=== PATIENT | male | born 1965 | race Caucasian/White ===

== ENCOUNTER 2017-03-18 13:32 | Emergency (ER) | payer BC ==
[~2017-03-18] VITALS: Ht 182.9 cm; Wt 105.7 kg
[2017-03-18 13:58] VITALS: TEMP 36.6; Ht 182.9 cm; Wt 105.7 kg
--- NOTE | 2017-03-18 14:44 | EMERGENCY ROOM VISIT NOTE ---
History Report prepared by Nomi: Dodie Garcia Under the Supervision of: Dr. Moose Cordoba D.O. First contact with patient: 14:22 Chief Complaint: ABDOMINAL PAIN Stated Complaint: LOWER ABDOMINAL PAIN Nursing Triage Summary: started with lower left abdominal pain about 30-45 mins ago. nausea and vomiting. denies trouble urinating. pain has subsided now. went to urgent care and was sent here History of Present Illness The patient is a 51 year old male who presents to the Emergency Room with complaints of left flank pain. The patient noticed an acute onset of left upper quadrant and left-sided back pain which began earlier today while he was hunting. The patient states the pain has been intermittent and very severe and stabbing at its worst. The patient was seen at an urgent care center in [place] and was told to come to the emergency department for appendicitis. The patient states he had one episode of emesis but does not feel nauseous at this time. He denies having any severe back pain decreased range of motion or injury. He denies noticing any blood in the urine. He's had no fevers. The patient has not had similar symptoms in the past. Source of History: patient Onset: earlier today Position: other (left flank) Symptom Intensity: severe (very) Quality: stabbing Timing: intermittent Associated Symptoms: + vomiting, No fevers, No nausea, No urinary symptoms Review of Systems See HPI for pertinent positives & negatives. A total of 10 systems reviewed and were otherwise negative. Past Medical & Surgical Medical Problems: (1) No Known Active Medical Problems Family History No pertinent family history stated. Social History Smoking Status: Never Smoker Smokeless Tobacco Use: No Alcohol Use: occasionally Drug Use: none Current/Historical Medications No Active Prescriptions or Reported Meds Allergies Coded Allergies: No Known Allergies (Unverified , 03/18/17) Physical Exam Vital Signs Date Time Temp Pulse Resp B/P (MAP) Pulse Ox O2 Delivery O2 Flow Rate FiO2 03/18/17 16:28 71 18 147/92 98 03/18/17 13:58 36.6 78 18 152/91 99 Physical Exam GENERAL: Patient is awake alert in no acute distress patient is resting comfortably and showing no signs of anxiety EYES: The conjunctivae are clear. The pupils are round and reactive. EARS, NOSE, MOUTH AND THROAT: The nose is without any evidence of any deformity. Mucous membranes are moist tongue is midline NECK: The neck is nontender and supple. RESPIRATORY: Normal respiratory effort is noted there is no evidence of wheezing rhonchi or rales CARDIOVASCULAR: Regular rate and rhythm noted there no murmurs rubs or gallops normal S1 normal S2 GASTROINTESTINAL: The abdomen is soft. Bowel sounds are present in all quadrants. Abdomen is nontender BACK: No midline tenderness or or step-off noted range of motion in flexion extension as well as rotation no signs of muscle spasm noted MUSCULOSKELETAL/EXTREMITIES: There is no evidence of gross deformity full range of motion is noted in the hips and shoulders SKIN: There is no obvious evidence of any rash. There are no petechiae, pallor or cyanosis noted. NEUROLOGIC: Patient is awake alert and oriented x3. Medical Decision & Procedures ER Provider Diagnostic Interpretation: Radiology results as stated below per my review and radiologist interpretation: ABD/PELVIS NO IV OR ORAL CONT CT DOSE: 811.19 mGy.cm HISTORY: Flank pain left flANK PAIN TECHNIQUE: Multiaxial CT images of the abdomen and pelvis were performed without contrast. A dose lowering technique was utilized adhering to the principles of ALARA. COMPARISON STUDY: None. FINDINGS: Lung bases are clear. Liver spleen and pancreas are unremarkable. Kidneys negative for hydronephrosis or calcification. There is no evidence for distention of the ureters. Mild chronic ascending and sigmoid diverticulosis. Scattered diverticuli throughout the remainder the colon. No evidence for acute diverticulitis. No evidence for abscess collection or obstruction. Bladder is midline. There is no significant abdominal pelvic or inguinal adenopathy. IMPRESSION: 1. Mild chronic descending and sigmoid colonic diverticulosis. 2. No evidence for acute diverticulitis. 3. Otherwise negative study. The above report was generated using voice recognition software. It may contain grammatical, syntax or spelling errors. Electronically signed by: Prosper Jacobo M.D. 03/18/2017 3:19 PM Dictated Date/Time: 03/18/2017 3:15 PM Laboratory Results 03/18/17 14:30 Red Blood Count 4.94, Mean Corpuscular Volume 89.3, Mean Corpuscular Hemoglobin 31.2, Mean Corpuscular Hemoglobin Concent 34.9, Mean Platelet Volume 9.8, Neutrophils (%) (Auto) 77.4, Lymphocytes (%) (Auto) 13.5, Monocytes (%) (Auto) 7.7, Eosinophils (%) (Auto) 1.0, Basophils (%) (Auto) 0.2, Neutrophils # (Auto) 9.60, Lymphocytes # (Auto) 1.67, Monocytes # (Auto) 0.96, Eosinophils # (Auto) 0.12, Basophils # (Auto) 0.02 03/18/17 14:30 Test 03/18/17 14:30 White Blood Count 12.40 K/uL (4.8-10.8) Red Blood Count 4.94 M/uL (4.7-6.1) Hemoglobin 15.4 g/dL (14.0-18.0) Hematocrit 44.1 % (42-52) Mean Corpuscular Volume 89.3 fL (80-100) Mean Corpuscular Hemoglobin 31.2 pg (25-34) Mean Corpuscular Hemoglobin Concent 34.9 g/dl (32-36) Platelet Count 188 K/uL (130-400) Mean Platelet Volume 9.8 fL (7.4-10.4) Neutrophils (%) (Auto) 77.4 % Lymphocytes (%) (Auto) 13.5 % Monocytes (%) (Auto) 7.7 % Eosinophils (%) (Auto) 1.0 % Basophils (%) (Auto) 0.2 % Neutrophils # (Auto) 9.60 K/uL (1.4-6.5) Lymphocytes # (Auto) 1.67 K/uL (1.2-3.4) Monocytes # (Auto) 0.96 K/uL (0.11-0.59) Eosinophils # (Auto) 0.12 K/uL (0-0.5) Basophils # (Auto) 0.02 K/uL (0-0.2) RDW Standard Deviation 43.7 fL (36.4-46.3) RDW Coefficient of Variation 13.3 % (11.5-14.5) Immature Granulocyte % (Auto) 0.2 % Immature Granulocyte # (Auto) 0.03 K/uL (0.00-0.02) Urine Color YELLOW Urine Appearance CLEAR (CLEAR) Urine pH 7.0 (4.5-7.5) Urine Specific [place] 1.023 (1.000-1.030) Urine Protein NEG (NEG) Urine Glucose (UA) NEG (NEG) Urine Ketones NEG (NEG) Urine Occult Blood NEG (NEG) Urine Nitrite NEG (NEG) Urine Bilirubin NEG (NEG) Urine Urobilinogen NEG (NEG) Urine Leukocyte Esterase NEG (NEG) Anion Gap 8.0 mmol/L (3-11) Est Creatinine Clear Calc Drug Dose 88.6 ml/min Estimated GFR () 77.5 Estimated GFR (Non- 66.9 BUN/Creatinine Ratio 15.8 (10-20) Calcium Level 9.4 mg/dl (8.5-10.1) Total Bilirubin 0.6 mg/dl (0.2-1) Direct Bilirubin 0.1 mg/dl (0-0.2) Aspartate Amino Transf (AST/SGOT) 26 U/L (15-37) Alanine Aminotransferase (ALT/SGPT) 38 U/L (12-78) Alkaline Phosphatase 80 U/L (45-117) Total Protein 7.6 gm/dl (6.4-8.2) Albumin 4.1 gm/dl (3.4-5.0) Lipase 157 U/L (73-393) Laboratory results per my review. ED Course 1424: The patient was evaluated in room C9. A complete history and physical examination were performed. 1607: Upon reevaluation, the patient is resting comfortably. I discussed the results and treatment plan with him. He verbalized agreement of the treatment plan. He was discharged home. Medical Decision Prior records/ancillary studies reviewed. Triage Nursing notes reviewed. Differential diagnosis: Etiologies such as appendicitis, diverticulitis, PUD, biliary pathology, UTI, pancreatitis, obstruction, mesenteric ischemia, aortic pathology, infections, inflammatory bowel disease, renal colic, as well as others were entertained. The patient is a 51-year-old male who presented to the emergency department for an evaluation of left-sided abdominal pain. The patient states the pain was very severe earlier sharp. He was very uncomfortable and had to walk around because the pain was so severe. The patient was seen at an urgent care center and sent to the emergency department for possible appendicitis. The patient's history and physical exam appear to be more consistent with renal colic. I discussed the patient's laboratory and radiographic studies with him. At this time no definite abnormality was noted on CT the abdomen and pelvis. The patient continued to be pain-free in the emergency department. He was encouraged to rest and avoid any strenuous activity. He was also encouraged to continue all medications as prescribed and return to the emergency department immediately if symptoms change worsen or the need arises. Medication Reconcilliation Current Medication List: was personally reviewed by me Blood Pressure Screening Patient's blood pressure: Elevated blood pressure Blood pressure disposition: Elevated BP felt to be situational Impression Primary Impression: Left sided abdominal pain Scribe Attestation The scribe's documentation has been prepared under my direction and personally reviewed by me in its entirety. I confirm that the note above accurately reflects all work, treatment, procedures, and medical decision making performed by me. Departure Information Dispostion Home / Self-Care Prescriptions No Active Prescriptions or Reported Meds Referrals No Doctor, Assigned (PCP) Forms Call Back Authorization, HOME CARE DOCUMENTATION FORM, IMPORTANT VISIT INFORMATION Patient Instructions ED Abdominal Pain Unkn Cause Male, My [facility] Additional Instructions Follow-up with your family doctor soon as possible. Rest and avoid any strenuous activity. Drink plenty clear liquids. Continue using Motrin and Tylenol for pain. Return to the emergency department immediately if symptoms change worsen or the need arises.
[2017-03-18 14:51] LABS: URINE APPEARANCE CLEAR (CLEAR); URINE BILIRUBIN NEG (NEG); URINE COLOR YELLOW; URINE NITRITE NEG (NEG); URINE SPECIFIC GRAVITY 1.023 (1.000-1.030); UROBILINOGEN NEG (NEG)
[2017-03-18 14:52] LABS: REVIEW REQ? NO
[2017-03-18 14:53] LABS: MANUAL MICROSCOPIC REQUIRED? NO
[2017-03-18 15:01] LABS: BASO % 0.2 %; BASO ABS # 0.02 K/uL (0-0.2); COMPLETE YES; HEMATOCRIT 44.1 % (42-52); IG% 0.2 %; LYMPH % 13.5 %; LYMPH ABS # 1.67 K/uL (1.2-3.4); MEAN CELL VOLUME 89.3 fL (80-100); MEAN CORPUSCULAR HEMOGLOBIN 31.2 pg (25-34); MEAN CORPUSCULAR HGB CONC 34.9 g/dl (32-36); MEAN PLATELET VOLUME 9.8 fL (7.4-10.4); MONO % 7.7 %; NEUT % 77.4 %; PLATELET COUNT 188 K/uL (130-400); RED BLOOD COUNT 4.94 M/uL (4.7-6.1)
[2017-03-18 15:18] LABS: BUN/CREATININE RATIO 15.8 (10-20); CALCIUM 9.4 mg/dl (8.5-10.1); CREATININE 1.24 mg/dl (0.60-1.40)
--- NOTE | 2017-03-18 15:21 | DIAGNOSTIC IMAGING REPORT ---
ABD/PELVIS NO IV OR ORAL CONT CT DOSE: 811.19 mGy.cm HISTORY: Flank pain left flANK PAIN TECHNIQUE: Multiaxial CT images of the abdomen and pelvis were performed without contrast. A dose lowering technique was utilized adhering to the principles of ALARA. COMPARISON STUDY: None. FINDINGS: Lung bases are clear. Liver spleen and pancreas are unremarkable. Kidneys negative for hydronephrosis or calcification. There is no evidence for distention of the ureters. Mild chronic ascending and sigmoid diverticulosis. Scattered diverticuli throughout the remainder the colon. No evidence for acute diverticulitis. No evidence for abscess collection or obstruction. Bladder is midline. There is no significant abdominal pelvic or inguinal adenopathy. IMPRESSION: 1. Mild chronic descending and sigmoid colonic diverticulosis. 2. No evidence for acute diverticulitis. 3. Otherwise negative study. The above report was generated using voice recognition software. It may contain grammatical, syntax or spelling errors. Electronically signed by: Prosper Jacobo M.D. 03/18/2017 3:19 PM Dictated Date/Time: 03/18/2017 3:15 PM
[2017-03-18 16:28] VITALS: BP 147/92; PULSE 71; O2SAT 98
== END 2017-03-18 16:29 | disposition home or self-care (01) ==
LOC: C.EDB 13:35 → C.EDC 16:29
DX: R10.32 Left lower quadrant pain (principal)